=== PATIENT | male | born 1980 | race Caucasian/White ===

== ENCOUNTER → 2016-12-21 | Outpatient (CLI) | payer SELFPAY ==
[~2016-12-21] MED LIST: ATARAX25 MG PO; BENADRYL25 M1 PO; CLEOCIN150 MG PO; LOTRIMIN1% T; NKHM; PREDNICOT20 MG PO; VIBRAMYCIN100 MG PO; ZANTAC150 MG PO; ZOFRAN ODT4 MG SL
== END | disposition home or self-care (01) ==
LOC: RAD 16:18
DX: M54.5 Low back pain (principal); M79.605 Pain in left leg

== ENCOUNTER → 2017-07-18 | Outpatient (CLI) | payer OTHER | LOC: MRI 13:38 | DX: M48.061 Spinal stenosis, lumbar region without neurogenic claudication (principal); M48.07 Spinal stenosis, lumbosacral region; S33.131A Dislocation of L3/L4 lumbar vertebra, initial encounter; X58.XXXA Exposure to other specified factors, initial encounter; Y93.89 Activity, other specified; Y92.89 Other specified places as the place of occurrence of the external cause; Y99.8 Other external cause status ==

== ENCOUNTER 2017-08-24 09:57 | Emergency (ER) | payer BC ==
[~2017-08-24] VITALS: Ht 182.8 cm; Wt 102.1 kg
[2017-08-24] MEDS ORDERED: NEXIUM 24HR20 M2 PO (10:04)
[2017-08-24 10:37] LABS: HEMOGLOBIN 16.7 g/dl (14.0-18.0); MEAN CELL VOLUME 91.6 fl (80.0-94.0); MEAN CORPUSCULAR HGB 32.6 pg (27.0-31.0); MEAN CORPUSCULAR HGB CONC 35.5 g/dl (33.0-37.0); MEAN PLATELET VOLUME 10.3 fl (9.6-12.3); PLATELET COUNT AUTOMATED 165 10*3/uL (130-400); RED BLOOD COUNT 5.13 10*6/uL (4.50-5.90); RED CELL DISTRI WIDTH 12.5 % (0-14.5); WHITE BLOOD COUNT 7.9 10*3/uL (4.8-10.8)
[2017-08-24 10:47] LABS: ALBUMIN 4.6 gm/dl (3.1-4.5); ALKALINE PHOSPHATASE 67 U/L (45-117); BUN 15 mg/dl (7-24); CHLORIDE 102 mmol/L (98-107); CREATININE 1.12 mg/dL (0.70-1.30); LIPASE 170 U/L (73-393); POTASSIUM 3.9 mmol/L (3.5-5.1); SGOT/AST 19 IU/L (3-35); SGPT/ALT 26 U/L (12-78); SODIUM 137 mmol/L (136-145); TOTAL PROTEIN 8.9 gm/dL (6.4-8.2)
[2017-08-24 10:55] LABS: ATYPICAL LYMPHS 7 % (0-0); BASOPHILS 1 % (0-1); PLATELET SUFFICIENCY NORMAL (NORMAL); TOTAL CELLS COUNTED 100 #CELLS
[2017-08-24 11:47] LABS: BILIRUBIN NEGATIVE (NEGATIVE); BLOOD NEGATIVE (NEGATIVE); CLARITY CLOUDY (CLEAR); COLOR YELLOW (YELLOW); GLUCOSE NEGATIVE (NEGATIVE); KETONE TRACE (NEGATIVE); LEUKO ESTERASE NEGATIVE (NEGATIVE); NITRITE NEGATIVE (NEGATIVE); PH 5.5 (5.0-9.0); UROBILINOGEN 0.2 E.U./dl (0.2-1.0)
[2017-08-24 12:00] LABS: BACTERIA TRACE; EPITHELIAL CELLS 0-2; MUCOUS 2+; WBC 0-2 wbc/hpf (0-5)
[2017-08-24] MEDS ORDERED: ZOFRAN ODT4 MG SL (12:44)
[2017-08-24] MEDS ORDERED: LOMOTIL 2.5-0.1 EACH PO (12:45)
== END 2017-08-24 12:56 | disposition home or self-care (01) ==
LOC: ED 09:57
PROVIDERS: Nurse Practitioner Family
DX: K29.70 Gastritis, unspecified, without bleeding (principal); Z79.899 Other long term (current) drug therapy

== ENCOUNTER 2021-04-16 13:16 | Emergency (ER) | payer BC ==
[~2021-04-16] VITALS: Ht 182.8 cm; Wt 102.1 kg
[~2021-04-16 13:16] MED LIST changes: +LOMOTIL 2.5-0.1 EACH PO; +NEXIUM 24HR20 M2 PO
[2021-04-16] MEDS ORDERED: KETOROLAC10 MG PO (15:01)
[2021-04-16] MEDS ORDERED: PREDNISONE20 M1 PO (15:01)
[2021-04-16] MEDS ORDERED: CYCLOBENZAPRINE5 M3 PO (15:01)
== END 2021-04-16 15:03 | disposition home or self-care (01) ==
LOC: ED 13:16
DX: M54.16 Radiculopathy, lumbar region (principal); Z79.899 Other long term (current) drug therapy

== ENCOUNTER → 2022-02-15 | Outpatient (CLI) | payer BC ==
[~2022-02-15] MED LIST changes: +CYCLOBENZAPRINE5 M3 PO; +KETOROLAC10 MG PO; +LEVOTHYROXINE25 MCG PO; +PREDNISONE20 M1 PO
== END | disposition home or self-care (01) ==
LOC: ORTHO 02:40
PROVIDERS: ATTEND Orthopaedic Surgery
DX: M67.40 Ganglion, unspecified site (principal)

== ENCOUNTER → 2022-03-02 | Day surgery (SDC) | payer BC ==
[~2022-03-02] VITALS: Ht 182.8 cm; Wt 104.3 kg
[2022-03-02 06:58] VITALS: BP 127/72
[2022-03-02 08:07] VITALS: BP 132/72
[2022-03-02 08:22] VITALS: BP 105/59
[2022-03-02 08:37] VITALS: BP 107/64
== END | disposition home or self-care (01) ==
LOC: SDC 02-26 08:00
PROVIDERS: ATTEND Orthopaedic Surgery
DX: M67.432 Ganglion, left wrist (principal); E03.9 Hypothyroidism, unspecified; K21.9 Gastro-esophageal reflux disease without esophagitis; Z79.899 Other long term (current) drug therapy; Z98.890 Other specified postprocedural states